=== PATIENT | female | born 1995 | race Caucasian/White ===

== ENCOUNTER → 2022-05-26 | Outpatient (CLI) | payer SELFPAY ==
[2022-05-26 18:12] LABS: Follicle Stimulating Hormone 5.4 mIU/mL; Luteinizing Hormone 10.4 mIU/mL; Prolactin 38.8 ng/mL; T4 Free Direct 1.14 ng/dL (0.76-1.46); Thyroid Stim Hormone (TSH) 0.99 uIU/mL (0.358-3.74)
[2022-05-31 20:30] LABS: HPV Reflexed? NOT INDICATED
[2022-06-01 15:08] LABS: Testosterone, Free 0.23 ng/dL (0.10-0.85); Testosterone, Total 38 ng/dL (13-71)
== END | disposition home or self-care (01) ==
PROVIDERS: PCP Pediatrics; Visit Provider Student in an Organized Health Care Education/Training Program
DX: Z12.4 Encounter for screening for malignant neoplasm of cervix (principal); N92.6 Irregular menstruation, unspecified
CPT/HCPCS: 36415; 82670; 83001; 83002; 84146; 84402; 84403; 84439; 84443; 88175; G0145

== ENCOUNTER → 2022-06-09 | Outpatient (CLI) | payer SELFPAY ==
[2022-06-09 17:45] LABS: LDH 149 U/L (84-246)
[2022-06-11 13:06] LABS: AFP, Tumor Marker < 1.8 ng/mL (0.0-4.7); Cancer Antigen 125 19.4 U/mL (0.0-38.1); Carbohydrate AG 19-9 16 U/mL (0-35); Carcinoembryonic Antigen 0.7 ng/mL (0.0-4.7)
== END | disposition home or self-care (01) ==
PROVIDERS: PCP Pediatrics; Visit Provider Student in an Organized Health Care Education/Training Program
DX: N83.201 Unspecified ovarian cyst, right side (principal)
CPT/HCPCS: 36415; 82105; 82378; 83615; 86301; 86304

== ENCOUNTER 2025-04-23 12:56 | Emergency (ER) | payer OTHER, SELFPAY ==
[2025-04-23 12:58] VITALS: BP 131/79; PULSE 108; RESP 18; TEMP 36.1; O2SAT 100
--- NOTE | 2025-04-23 13:36 | EX.ED.DYSGE1 ---
HPI History of Present Illness Chief Complaint: General Illness Narrative Narrative: Chief complaint and HPI: 30-year-old female with no significant past medical history and vaccinated and is trying presents for evaluation of posterior oral sores, sore throat, mild periorbital edema. Patient states on Tuesday she developed a sore throat, mild periorbital edema, and posterior oral sores. She states that she was seen at an urgent care in which she had a strep test that was negative. They thought maybe her wisdom tooth was infected and placed her on amoxicillin. Told her to follow-up with a dentist. Patient states she followed up with a dentist in which she had imaging and exam performed. No dental infection. She denies any fever, chills, cough, chest pain, shortness of breath, abdominal pain, nausea, vomiting. Denies any rash. Denies any sores to the hand or feet. Review of systems: See HPI Medications: As listed on the chart Allergies: As listed on the chart PFSH: Per chart Vital signs: As listed on the chart. Reviewed. Physical exam: Gen: A&O x3, NAD Head: Normocephalic, atraumatic Eyes: No sclera icterus, conjunctiva clear, PERRL, EOMI without pain, mild inferior periorbital edema without any erythema/warmth/induration/fluctuance-nontender ENT: TMs clear BL, no sinus tenderness, no nasal congestion or rhinorrhea, moist mucous membranes, no dental infection, no submandibular swelling/El angina, no tongue enlargement, tolerating secretions, normal phonation, posterior oropharynx mildly erythematous, uvula midline, tonsils + 2 bilaterally but with exudates-left greater than right, no oral sores/lesions, no herpangina, no vesicles, no cold sores or canker sores Neck: Trachea midline, no lymphadenopathy, full ROM, No meningismus CV: RRR, no murmurs Resp: Lungs CTA BL, no w/r/c GI: Abd soft, non-distended, non-tender, no r/r/g Skin: Warm, dry, no rash throughout the body especially on the hands or feet Psych: Cooperative, appropriate mood and affect PFSH PFSH Medical History no medical history Home Medications ?Medication ?Instructions ?Recorded ?Last Taken ?Type NK 04/23/25 Unknown History Allergy/AdvReac Type Severity Reaction Status Date / Time No Known Allergies Allergy Verified 04/23/25 13:00 Surgical History no surgical history Social History Smoking Status: Never smoker EXAM Physical Exam Const Vital Signs: 04/23/25 12:58 04/23/25 13:58 Temperature 96.9 F L Temperature Source Temporal Pulse Rate 108 H Respiratory Rate 18 Respiratory Effort Normal Respiratory Pattern Normal Blood Pressure 131/79 H Blood Pressure Mean 96 Pulse Ox 100 Oxygen Delivery Method Room Air MDM MDM MDM Narrative Medical decision making narrative: 30-year-old female with no significant past medical history and vaccinated and is trying presents for evaluation of posterior oral sores, sore throat, mild periorbital edema. Patient states on Tuesday she developed a sore throat, mild periorbital edema, and posterior oral sores. She states that she was seen at an urgent care in which she had a strep test that was negative. They thought maybe her wisdom tooth was infected and placed her on amoxicillin. Told her to follow-up with a dentist. Patient states she followed up with a dentist in which she had imaging and exam performed. No dental infection. See physical exam findings. Patient does not have any oral sores or lesions instead she has tonsillar exudates bilaterally. Her tonsils are not significantly enlarged. She does have some mild inferior report periorbital edema without any tenderness or sinus tenderness/congestion. No cellulitic lesions. Differential diagnosis includes but is not limited to viral pharyngitis, strep pharyngitis, mono. [place] and strep PCR ordered. [place] and strep PCR negative. Patient's pharyngitis may be viral versus other bacterial etiology. Given the duration of her symptoms, will broaden her antibiotics and place her on Augmentin. Stop the amoxicillin. Follow-up with primary care physician and ENT if symptoms do not improve. She confirmed understand the plan. Patient able to discharge home. Return precautions explained. Impression: 1. Pharyngitis with exudates Lab Data Labs: Laboratory Results - last 24 hr 04/23/25 13:50 Monoscreen Negative Discharge Plan Triage Chief Complaint: General Illness ED Provider: Declan Solis Dx/Rx/DC Orders Prescriptions: No Action NK Primary Care Provider: Jeannette Barton Referrals: Jeannette Barton MD [Primary Care Provider, Pediatrics] Print Language: [place]
[2025-04-23 14:33] LABS: Internal QC Validated? YES +Cl - CLEAR BKGD; Record Kit Lot#, Mono 16251077
[2025-04-23 15:02] VITALS: BP 111/68; PULSE 94; RESP 15; TEMP 37.7; O2SAT 100
== END 2025-04-23 15:03 | disposition home or self-care (01) ==
PROVIDERS: Emergency Provider Surgery; PCP Pediatrics; Visit Provider Surgery
DX: J03.90 Acute tonsillitis, unspecified (principal)
CPT/HCPCS: 86308; 87651; 99282